=== PATIENT | male | born 1980 | race Caucasian/White ===

== ENCOUNTER 2016-03-22 09:13 | Emergency (ER) | payer BC ==
[2016-03-22 09:27] VITALS: BP 122/85
--- NOTE | 2016-03-22 15:11 | UC ---
Throat Pain/Nasal Enrike HPI - HPI Summary HPI Summary: pt has had 3 days of runny nose, mild nasal congestion, watery eyes. denies acharya , st, ear ache, cough, sob, cp, f/c/s, eye pain/redness/itching, photophobia, mucsle aches/joint pain, n/v/d, rash, urinary problems. denies sinus congestion /pain. - History of Current Complaint Chief Complaint: UCRespiratory Stated Complaint: UPPER RESPIRATORY Time Seen by Provider: 03/22/16 10:22 Hx Obtained From: Patient Onset/Duration: Gradual Onset, Lasting Days - 3, Still Present Severity: Mild Cough: None Associated Signs & Symptoms: Positive: Nasal Discharge. Negative: Dysphagia, FB Sensation, Drooling, Wheezing, Hoarseness, Sinus Discomfort, Fever, Vomiting , Rash Related History: Seasonal Allergies - Allergies/Home Medications Allergies/Adverse Reactions: Allergies Allergy/AdvReac Type Severity Reaction Status Date / Time cats,dogs Allergy Unknown Uncoded 03/22/16 09:27 Reaction Details Home Medications: Home Medications Okgqsrfospxic-Ojszkqhfzrlup-El [Mucinex Fast-Max Cold & S] 1 liq PO ONCE PRN [History Confirmed 03/22/16] Phenylephrine-Chlorpheniramine [Shwetha-[place] Plus Cold &] 1 cap PO BID PRN 03/22 [History Confirmed 03/22/16] PMH/Surg Hx/FS Hx/Imm Hx Previously Healthy: Yes - Surgical History Surgical History: Yes Surgery Procedure, Year, and Place: Appendectomy, 1993, [facility] - Family History Known Family History: Positive: Hypertension Negative: Cardiac Disease, Diabetes - Social History Occupation: Employed Part-time - [employer] worker - laid off in the winter Lives: With Family Alcohol Use: Occasionally Substance Use Type: None Smoking Status (MU): Never Smoked Tobacco - Immunization History Most Recent Influenza Vaccination: has not had Review of Systems Constitutional: Negative Skin: Negative Eyes: Drainage - watery ENT: Nasal Discharge Respiratory: Negative Cardiovascular: Negative Gastrointestinal: Negative Genitourinary: Negative Motor: Negative Neurovascular: Negative Musculoskeletal: Negative Neurological: Negative Psychological: Negative All Other Systems Reviewed And Are Negative: Yes Physical Exam Triage Information Reviewed: Yes Appearance: Well-Appearing, No Pain Distress, Well-Nourished Vital Signs: Initial Vital Signs Temp 98.6 F 03/22/16 09:20 Pulse 74 03/22/16 09:20 Resp 18 03/22/16 09:20 BP 122/85 03/22/16 09:20 Vital Signs Reviewed: Yes Eyes: Positive: Conjunctiva Clear. Negative: Discharge - none noted on exam ENT: Positive: Hearing grossly normal, Pharynx normal, Nasal congestion, Nasal drainage, TMs normal, Other: - sinuses nontender. Negative: Tonsillar swelling , Tonsillar exudate, Trismus, Muffled/hoarse voice Neck: Positive: Supple, Nontender, No Lymphadenopathy Respiratory: Positive: Lungs clear, Normal breath sounds, No respiratory distress, No accessory muscle use Cardiovascular: Positive: RRR, No Murmur Musculoskeletal Exam: Normal Neurological: Positive: Alert, Muscle Tone Normal Psychological: Positive: Age Appropriate Behavior Skin Exam: Normal Throat Pain/Nasal Course/Dx - Differential Dx/Diagnosis Differential Diagnosis/HQI/PQRI: Sinusitis, URI Provider Diagnoses: uri Discharge - Discharge Plan Condition: Stable Disposition: HOME Patient Education Materials: Upper Respiratory Infection (ED), Serous Otitis Media (ED) Referrals: No Primary Care Phys,NOPCP [Primary Care Provider] - Additional Instructions: At this point your symptoms appear to be viral in natural. If they persist as they are, you can try an allergy medicine to see if that improves your symptoms. If symptoms worsen or if new symptoms develop such as fever, headache , cough, shortness of breath, vomiting, you can return for re-evaluation. TRY USING THE NETTI POT IN THE MORNINGS DISCUSSED. YOU MUST ALWAYS USE CLEAN WATER. REMEMBER, POSTURE IS AN IMPORTANT FACTOR IN SINUS DRAINAGE. MOVE YOUR NECK, BREATHE.
== END 2016-03-22 10:45 | disposition home or self-care (01) ==
LOC: UCCORT 09:13
DX: J06.9 Acute upper respiratory infection, unspecified (principal)
CPT/HCPCS: 99211; G0463

== ENCOUNTER 2017-04-25 14:27 | Emergency (ER) | payer BC ==
[2017-04-25 15:23] VITALS: BP 124/80
--- NOTE | 2017-04-25 15:35 | UC ---
Skin Complaint HPI - HPI Summary HPI Summary: Pt c/o tick bite left mid lateral chest. Pt unsure of how long tick attached Also, c/o right ear fullness and "water in my ear" X 6 months - History of Current Complaint Chief Complaint: UCSkin Time Seen by Provider: 04/25/17 15:29 Stated Complaint: TICK AND RIGHT EAR COMP Hx Obtained From: Patient Onset/Duration: Sudden Onset, Still Present Skin Exposure Onset/Duration: Days Ago Timing: Constant Onset Severity: Mild Current Severity: Mild Pain Intensity: 0 Location: Discrete Aggravating Factor(s): Touch Alleviating Factor(s): Unknown Associated Signs & Symptoms: Positive: Negative Related History: Insect Bite/Sting - Allergy/Home Medications Allergies/Adverse Reactions: Allergies Allergy/AdvReac Type Severity Reaction Status Date / Time cats,dogs Allergy Unknown Uncoded 04/25/17 15:23 Reaction Details Review of Systems Constitutional: Negative Skin: Other - tick bite, tick attached Eyes: Negative ENT: Negative Respiratory: Negative Cardiovascular: Negative Gastrointestinal: Negative Genitourinary: Negative Motor: Negative Neurovascular: Negative Musculoskeletal: Negative Neurological: Negative Is Patient Immunocompromised?: No All Other Systems Reviewed And Are Negative: Yes PMH/Surg Hx/FS Hx/Imm Hx Previously Healthy: Yes - Surgical History Surgical History: Yes Surgery Procedure, Year, and Place: Appendectomy, 1993, [facility] - Family History Known Family History: Positive: Hypertension Negative: Cardiac Disease, Diabetes - Social History Occupation: Employed Full-time Lives: With Family Alcohol Use: Occasionally Substance Use Type: None Smoking Status (MU): Never Smoked Tobacco Type: Smokeless Tobacco Have You Smoked in the Last Year: No - Immunization History Most Recent Influenza Vaccination: has not had Physical Exam Triage Information Reviewed: Yes Appearance: Well-Appearing Vital Signs: Initial Vital Signs Temp 98.8 F 04/25/17 15:21 Pulse 100 04/25/17 15:21 Resp 18 04/25/17 15:21 BP 124/80 04/25/17 15:21 Pulse Ox 100 04/25/17 15:21 Vital Signs Reviewed: Yes Eye Exam: Normal ENT: Positive: TM bulging - right TM Dental Exam: Normal Neck exam: Normal Respiratory: Positive: No respiratory distress Musculoskeletal Exam: Normal Neurological Exam: Normal Psychological Exam: Normal Skin Exam: Other - tick attached to left mid lateral chest. Tick removed intact. Pt tolerated well Course/Dx - Differential Diagnoses - Skin Complaint Differential Diagnoses: Other - tick bite, tick removal, serous otitis - Diagnoses Provider Diagnoses: tick bite,. tick removal,. serous otitis right ear Discharge - Discharge Plan Condition: Stable Disposition: HOME Prescriptions: Cetirizine HCl/Pseudoephedrine [Zyrtec-D Tablet] 1 each PO DAILY #10 tab DOXYcycline CAP(*) [DOXYcycline 100MG CAP(*)] 200 mg PO ONCE #2 cap Patient Education Materials: Tick Bite (ED), Serous Otitis Media (ED) Referrals: [facility] [Outside] No Primary Care Phys,NOPCP [Primary Care Provider] -
== END 2017-04-25 15:44 | disposition home or self-care (01) ==
LOC: UCCORT 14:27
DX: W57.XXXA Bitten or stung by nonvenomous insect and other nonvenomous arthropods, initial encounter (principal); Y93.9 Activity, unspecified; Y92.9 Unspecified place or not applicable; H65.91 Unspecified nonsuppurative otitis media, right ear; Z91.09 Other allergy status, other than to drugs and biological substances
CPT/HCPCS: 99212; G0463